=== PATIENT | male | born 2005 | race African-American/Black ===

== ENCOUNTER 2025-05-05 02:12 | Emergency (ER) | payer SELFPAY ==
[~2025-05-05] VITALS: Ht 182.9 cm; Wt 60.0 kg
[2025-05-05 02:17] VITALS: BP 118/76; TEMP 36.9; O2SAT 100
[2025-05-05 02:23] VITALS: PULSE 69; RESP 17; O2SAT 98
[2025-05-05] MEDS ORDERED: AMOX500T2 MT (02:49)
== END 2025-05-05 03:03 | disposition home or self-care (01) ==
LOC: ER 02:12
DX: J02.9 Acute pharyngitis, unspecified (principal)
CPT/HCPCS: 99283

== ENCOUNTER 2025-05-12 14:45 | Emergency (ER) | payer MEDICAID ==
[~2025-05-12] VITALS: Ht 182.9 cm; Wt 59.0 kg
[~2025-05-12 14:45] MED LIST: AMOX500T2 MT
[2025-05-12 14:59] VITALS: O2SAT 98
[2025-05-12 15:01] VITALS: BP 103/68; PULSE 75; RESP 18; TEMP 37; O2SAT 98
[2025-05-12 15:48] LABS: BASOPHILS % 0.5 % (0.0-2.0); EOSINOPHILS % 0.9 % (0.0-5.0); HEMATOCRIT. 48.7 % (42.0-52.0); LYMPHOCYTES % 56.1 % (20.0-50.0); MEAN CORPUSCULAR HEMOGLOBIN 27.5 pg (28.0-32.0); MEAN CORPUSCULAR HGB CONC 32.8 g/dL (31.0-37.0); MEAN CORPUSCULAR VOLUME 83.9 fL (80.0-94.0); MONOCYTES % 14.1 % (2.0-8.0); NEUTROPHILS % 28.4 % (40.0-76.0); PLATELET 379 x1000/uL (130-400); RED CELL DISTRIBUTION WIDTH 12.8 % (11.6-14.6); WHITE BLOOD COUNT 5.8 x1000/uL (4.5-11.0)
[2025-05-12] MEDS ORDERED: LIDO-53 TP (15:49)
[2025-05-12 15:58] LABS: INR 1.2; PROTHROMBIN TIME 12.4 sec (9.6-11.0)
[2025-05-12 16:02] LABS: CHLORIDE 104 mEq/L (98-107); POTASSIUM 4.1 mEq/L (3.5-5.1); SODIUM 136 mEq/L (136-145)
[2025-05-12 16:03] LABS: CALCIUM 9.9 mg/dL (8.7-10.4); CARBON DIOXIDE 25 mEq/L (21-32)
[2025-05-12 16:08] LABS: CREATININE 1.2 mg/dL (0.6-1.3); GLUCOSE 94 mg/dL (70-105)
[2025-05-12 16:09] LABS: UREA NITROGEN BLOOD 16 mg/dL (9-23)
[2025-05-12] MEDS ORDERED: ACET-2708 MT (16:26)
== END 2025-05-12 18:11 | disposition home or self-care (01) ==
LOC: ER 14:45
DX: M79.651 Pain in right thigh (principal); M79.652 Pain in left thigh; Z79.899 Other long term (current) drug therapy
CPT/HCPCS: 36415; 80048; 85025; 99283

== ENCOUNTER 2025-05-25 01:40 | Emergency (ER) | payer MEDICAID ==
[~2025-05-25] VITALS: Ht 182.9 cm; Wt 59.0 kg
[~2025-05-25 01:40] MED LIST changes: +ACET-2708 MT; +LIDO-53 TP
[2025-05-25 01:47] VITALS: O2SAT 98
[2025-05-25 01:52] VITALS: BP 112/72; PULSE 58; RESP 18; TEMP 36.7; O2SAT 96
== END 2025-05-25 03:43 | disposition left against medical advice (07) ==
LOC: ER 01:40
DX: R06.02 Shortness of breath (principal); R07.89 Other chest pain; Z53.21 Procedure and treatment not carried out due to patient leaving prior to being seen by health care provider